=== PATIENT | female | born 1985 | race Caucasian/White ===

== ENCOUNTER 2016-12-11 21:51 | Emergency (ER) ==
[2016-12-11 22:27] VITALS: TEMP 99.3; BMI 54.9
[2016-12-11 22:58] LABS: FLU INTERNAL QC INTERNAL QC VALID; RAPID FLU A NEGATIVE (NEGATIVE); RAPID FLU B NEGATIVE (NEGATIVE)
[2016-12-11] MEDS ORDERED: LEVAQUIN PO STA (23:04)
[2016-12-11] MEDS ORDERED: DECADRON 4 MG/ML SDV IM STA (23:04)
--- NOTE | 2016-12-11 23:07 | ED.PDOC ---
General ED Provider: Dr. MICHAEL CHOI-ER Chief Complaint: Fever Stated Complaint: roxanne got sinus pain and pressure Time Seen by Physician: 23:05 Mode of Arrival: Walk-In Information Source: Patient Exam Limitations: No limitations Primary Care Provider: MK TE[facility] Nursing and Triage Documentation Reviewed and Agree: Yes Respiratory Complaint Exam - Respiratory Complaint/Exam Onset/Duration: 2 days Symptoms Are: Still present Timing: Constant Initial Severity: Mild Current Severity: Mild Location: Nose Character: Reports: Non-productive cough Aggravating: Reports: URI Alleviating: Reports: None Associated Signs and Symptoms: Reports: URI, Nasal congestion, Sinus discomfort , Sore throat. Denies: Rapid breathing, Dyspnea, Fever, Chills, Chest pain, Pleuritic chest pain, Wheezing, Hemoptysis, Dizziness, Calf pain, Calf swelling , Edema, Hoarseness, Vomiting, Weight loss, Decreased oral intake, Increased thirst, Increased appetite, Increased urination Related History: Reports: Similar episode History of Healthcare-Acquired Pneumonia: No Related Surgical History: Reports: None Pseudomonas Risk Factors: Reports: None Tuberculosis Risk Factors: Reports: None Status Asthmaticus Risk Factors: Reports: None Home Oxygen Use: No Recent Stress Test: No Recent Echo/LV Function: No Current Antibiotic Use: No Current Asthma Medication Use: No Respiratory Distress: None Inadequate Respiratory Effort: No Dysphagia Present: No Stridor Present: No JVD Present: No Accessory Muscle Use: No Diminished Breath Sounds: No Sinus Tenderness: Frontal, Maxillary Grunting Respirations: No Kussmaul Respirations: No Differential Diagnoses: Sinusitis Review of Systems - Review Of Systems Constitutional: Reports: Fever Eyes: Reports: No symptoms Ears, Nose, Mouth, Throat: Reports: Nose pain, Nose discharge Respiratory: Reports: Cough Cardiac: Reports: No symptoms GI: Reports: No symptoms : Reports: No symptoms Musculoskeletal: Reports: No symptoms Skin: Reports: No symptoms Neurological: Reports: No symptoms Endocrine: Reports: No symptoms Hematologic/Lymphatic: Reports: No symptoms All Other Systems: Reviewed and Negative Past Medical History - Past Medical History Endocrine: Reports: Unknown Cardiovascular: Reports: Unknown Respiratory: Reports: Unknown Hematological: Reports: Unknown Gastrointestinal: Reports: Unknown Genitourinary: Reports: Unknown Neuro/Psych: Reports: Unknown Musculoskeletal: Reports: Unknown Cancer: Reports: Unknown Last Menstrual Period: 2 weeks ago - Surgical History General Surgical History: Reports: Unknown - Family History Family History: Reports: Unknown - Social History Smoking Status: Never smoker Hx Substance Use: No Alcohol Screening: None Lives: With family - Immunizations Tetanus Shot up to Date: Yes Physical Exam - Physical Exam Appearance: Well-appearing, No pain distress, Well-nourished Pain Distress: Mild Eyes: MARTI, EOMI, Conjunctiva clear ENT: Rhinorrhea Neck: Supple Respiratory: Airway patent Cardiovascular: RRR, Pulses normal, No rub, No murmur GI/: Soft, Nontender, No masses, Bowel sounds normal, No Organomegaly Musculoskeletal: Normal strength, ROM intact, No edema, No calf tenderness Skin: Warm, Dry, Normal color Neurological: Sensation intact, Motor intact, Reflexes intact, Cranial nerves intact, Alert, Oriented Psychiatric: Affect appropriate, Mood appropriate Critical Care Note - Critical Care Note Total Time (mins): 0 Course - Course Orders, Labs, Meds: Lab Review 12/11/16 22:37 Influenza A (Rapid) Negative Influenza B (Rapid) Negative Orders Category Date Time Status MOLECULAR GROUP A STREP Stat LAB 12/11/16 22:37 Results RAPID FLU A/B Stat LAB 12/11/16 22:37 Completed RAPID STREP SCREEN [STREP SCREEN] Stat LAB 12/11/16 22:37 Results Dexamethasone 4 mg/ml Inj [Decadron 4 mg/ml Sdv] MEDS 12/11/16 23:04 Stat 4 mg IM ONCE STA Levofloxacin [Levaquin] MEDS 12/11/16 23:04 Stat 500 mg PO ONCE STA Medications Generic Name Dose Route Start Last Admin Trade Name Freq PRN Reason Stop Dose Admin Dexamethasone Sodium Phosphate 4 mg 12/11/16 23:04 Decadron 4 Mg/Ml Sdv IM 12/11/16 23:05 ONCE STA Levofloxacin 500 mg 12/11/16 23:04 Levaquin PO 12/11/16 23:05 ONCE STA Vital Signs: Temp Pulse Resp BP Pulse Ox 12/11/16 22:44 144/101 H 12/11/16 22:20 99.3 F 99 H 20 176/110 H 97 Departure - Departure Time of Disposition: 23:07 Disposition: HOME SELF-CARE Discharge Problem: Elevated BP without diagnosis of hypertension Sinusitis Qualifiers: Sinusitis location: unspecified location Chronicity: acute Recurrence: non- recurrent Qualifier Code: (J01.90) Acute sinusitis, unspecified Instructions: Sinusitis (ED) Condition: Good Pt referred to PMD for follow-up: Yes Additional Instructions: levaquin 500mg q daily #10---flonase nasal spray one puff each nostril bid--f/u bp with your pcp Allergies/Adverse Reactions: Allergies ceftriaxone sodium [From Rocephin] Allergy (Severe, Unverified 05/30/14 09:22) N/V, nearly passed out Pt nofified to get medical alert necklace Home Medications: Ambulatory Orders Famotidine [Pepcid] 20 mg PO DAILY 12/11/16 Disposition Discussed With: Patient
[2016-12-11 23:21] VITALS: BP 155/96
== END 2016-12-11 23:44 | disposition home or self-care (01) ==
LOC: ED 21:51
DX: J01.90 Acute sinusitis, unspecified (principal); R03.0 Elevated blood-pressure reading, without diagnosis of hypertension
CPT/HCPCS: 87651; 87804; 87880; 96372; 99283